=== PATIENT | male | born 1940 | race Caucasian/White ===

== ENCOUNTER 2017-11-08 09:50 | Emergency (ER) | END 2017-11-08 15:46 | disposition home or self-care (01) ==

== ENCOUNTER 2018-08-07 05:26 | Emergency (ER) | payer OTHER ==
[~2018-08-07] VITALS: Ht 172.7 cm; Wt 83.7 kg
[~2018-08-07 05:26] MED LIST: MELA3TAB17 PO; METO-336 PO; RANI150T35 PO; SIMV20TA PO; TERA1CAP3 PO
[2018-08-07 05:35] VITALS: Ht 172.7 cm; Wt 83.7 kg
[2018-08-07] MEDS ORDERED: SODIUM CHLORIDE 0.9% 1L BAG IV* STA (06:13)
[2018-08-07] MEDS ORDERED: LOSA1TAB28 PO (07:01)
[2018-08-07] MEDS ORDERED: OMEP20CA16 PO (07:01)
[2018-08-07] MEDS ORDERED: ONDANSETRON 4 MG INJ IV STA (07:10)
[2018-08-07] MEDS ORDERED: ONDA4TAB14 PO (07:47)
[2018-08-07 08:07] VITALS: BP 129/72; PULSE 78; RESP 16
--- NOTE | 2018-08-07 11:24 | ERD ---
ER Documentation Chief Complaint Chief Complaint DIZZINESS WITH HEADACHE AND N/V; DRY MOUTH; NO CHEST PAIN HPI Patient is a 78-year-old male with hypertension and chronic kidney disease who presents feeling sick. It started last night at 9 PM and he said "I started feeling sick". He has headache and chills. He did not check his temperature but thought may be he had a fever. He denies vomiting and diarrhea but does have nausea. He also has a dry mouth. Upon review of old medical records the patient one previous visit in October 2017. He does have a primary doctor. ROS All systems reviewed and are negative except as per history of present illness. Medications Home Meds Active Scripts Ondansetron (Ondansetron Odt) 4 Mg Tab.rapdis, 4 MG PO Q6H PRN for NAUSEA AND/OR VOMITING, #10 TAB Prov:COREY BABCOCK MD 08/07/18 Reported Medications Losartan-Hydrochlorothiazide (Losartan-HCTZ) 100-12.5 Mg Tab, 1 TAB PO DAILY, TAB 08/07/18 Omeprazole* (Omeprazole*) 20 Mg Capsule.dr, 20 MG PO AC BREAKFAST, #30 CAP 08/07/18 Melatonin (Melatonin) 3 Mg Tablet.sa, 3 MG PO HS, TAB.SA 11/08/17 Terazosin Hcl* (Terazosin Hcl*) 1 Mg Capsule, 1 MG PO HS, CAP 11/08/17 Simvastatin* (Zocor*) 20 Mg Tablet, 20 MG PO QHS, #30 TAB 11/08/17 Discontinued Reported Medications Ranitidine Hcl* (Zantac*) 150 Mg Tablet, 150 MG PO HS, #30 TAB 11/08/17 Metoprolol Succinate* (Toprol XL*) 100 Mg Tab.sr.24h, 100 MG PO DAILY, #30 TAB 11/08/17 Allergies Allergies: Coded Allergies: No Known Allergy (Unverified , 11/08/17) PMhx/Soc History of Surgery: Yes (Testicle) Anesthesia Reaction: No Hx Neurological Disorder: No Hx Respiratory Disorders: No Hx Cardiac Disorders: Yes (Hypertension, hyperlipidemia) Hx Psychiatric Problems: No Hx Miscellaneous Medical Probl: Yes (BPH) Hx Alcohol Use: No Hx Substance Use: No Hx Tobacco Use: No Smoking Status: Never smoker FmHx Family History: diabetes Physical Exam Vitals Vital Signs Date Temp Pulse Resp B/P (MAP) Pulse Ox O2 O2 Flow FiO2 Time Delivery Rate 08/07/18 98.1 78 16 129/72 99 Room Air 08:07 (91) 08/07/18 97.8 82 16 126/67 99 Room Air 07:23 (86) 08/07/18 98.6 102 15 148/85 99 Room Air 06:16 (106) 08/07/18 98.6 121 19 140/87 96 05:35 (104) Physical Exam Const: No acute distress Head: Atraumatic Eyes: Normal Conjunctiva ENT: Normal External Ears, Nose and Mouth. Neck: Full range of motion. No meningismus. Resp: Clear to auscultation bilaterally Cardio: Regular rate and rhythm, no murmurs Abd: Soft, non tender, non distended. Normal bowel sounds Skin: No petechiae or rashes Back: No midline or flank tenderness Ext: No cyanosis, or edema Neur: Awake and alert Psych: Normal Mood and Affect Result Diagram: 08/07/1862208/07/1823 Results 24 hrs Laboratory Tests Test 08/07/18 06:23 08/07/18 06:35 White Blood Count 16.2 10^3/ul Red Blood Count 4.79 10^6/ul Hemoglobin 14.4 g/dl Hematocrit 42.3 % Mean Corpuscular Volume 88.3 fl Mean Corpuscular Hemoglobin 30.1 pg Mean Corpuscular Hemoglobin Concent 34.0 g/dl Red Cell Distribution Width 12.6 % Platelet Count 147 10^3/UL Mean Platelet Volume 11.2 fl Immature Granulocytes % 0.700 % Neutrophils % 90.5 % Lymphocytes % 2.7 % Monocytes % 5.9 % Eosinophils % 0.0 % Basophils % 0.2 % Nucleated Red Blood Cells % 0.0 /100WBC Immature Granulocytes # 0.110 10^3/ul Neutrophils # 14.6 10^3/ul Lymphocytes # 0.4 10^3/ul Monocytes # 1.0 10^3/ul Eosinophils # 0.0 10^3/ul Basophils # 0.0 10^3/ul Nucleated Red Blood Cells # 0.0 10^3/ul Prothrombin Time 13.4 Sec Prothrombin Time Ratio 1.0 INR International Normalized Ratio 1.01 Activated Partial Thromboplast Time 29.5 Sec Urine Color YELLOW Urine Clarity CLEAR Urine pH 5.0 Urine Specific [place] 1.013 Urine Ketones TRACE mg/dL Urine Nitrite NEGATIVE mg/dL Urine Bilirubin NEGATIVE mg/dL Urine Urobilinogen NEGATIVE mg/dL Urine Leukocyte Esterase NEGATIVE Jona/ul Urine Microscopic RBC 0 /HPF Urine Microscopic WBC 0 /HPF Urine Bacteria FEW /HPF Urine Hemoglobin 1+ mg/dL Urine Glucose NEGATIVE mg/dL Urine Total Protein NEGATIVE mg/dl Sodium Level 136 mmol/L Potassium Level 3.6 mmol/L Chloride Level 100 mmol/L Carbon Dioxide Level 25 mmol/L Anion Gap 11 Blood Urea Nitrogen 22 mg/dl Creatinine 1.26 mg/dl Est Glomerular Filtrat Rate mL/min mL/min Glucose Level 151 mg/dl Calcium Level 9.0 mg/dl Total Bilirubin 1.1 mg/dl Direct Bilirubin 0.00 mg/dl Indirect Bilirubin 1.1 mg/dl Aspartate Amino Transf (AST/SGOT) 24 IU/L Alanine Aminotransferase (ALT/SGPT) 25 IU/L Alkaline Phosphatase 50 IU/L Troponin I < 0.012 ng/ml Total Protein 7.0 g/dl Albumin 4.1 g/dl Globulin 2.90 g/dl Albumin/Globulin Ratio 1.41 POC Venous Lactate 1.4 mmol/L Current Medications Medications Dose Sig/Rosette Start Time Status Last (Trade) Ordered Route PRN Stop Time Admin Dose Reason Admin Sodium 2,510 ml BOLUS OVER 2 08/07/18 DC 08/07/18 Chloride HOURS STAT 06:13 06:41 (NS) IV* 08/07/18 06:14 Ondansetron 4 mg ONCE STAT 08/07/18 DC 08/07/18 HCl (Zofran IV 07:10 07:22 Inj) 08/07/18 07:11 Procedures/MDM EKG read by me: Rate/Rhythm: Sinus tachycardia at a rate of 103 Intervals: Normal Impression: Tachycardia without ischemia Chest x-ray negative per radiology. Patient is a 78-year-old male who presents with chills and nausea. He was basically normal on physical exam. He has no sign of serious bacterial infection at this time. I doubt sepsis. I doubt acute coronary syndrome or s troke. I believe outpatient management is appropriate at this time but the patient will need close follow-up with his primary doctor. The patient can return for any worsening symptoms. Departure Diagnosis: Primary Impression: Urinary frequency Additional Impressions: Dizziness Nausea Condition: Fair Patient Instructions: Nausea, Dizziness, Unk Cause Referrals: Your doctor Additional Instructions: Call your primary care doctor TOMORROW for an appointment during the next 1-2 days.See the doctor sooner or return here if your condition worsens before your appointment time. COREY BABCOCK MD Aug 07, 2018 11:24
== END 2018-08-07 08:08 | disposition home or self-care (01) ==
LOC: E/R 05:26
DX: R35.0 Frequency of micturition (principal); R11.0 Nausea; R40.2142 Coma scale, eyes open, spontaneous, at arrival to emergency department; R40.2252 Coma scale, best verbal response, oriented, at arrival to emergency department; R40.2362 Coma scale, best motor response, obeys commands, at arrival to emergency department; I10 Essential (primary) hypertension
CPT/HCPCS: 36415; 71045; 80053; 81001; 83605; 84484; 85025; 85610; 85730; 87040; 87086; 93005; 96361; 96374; 99285; J2405; J7030

== ENCOUNTER 2019-02-26 19:25 | Inpatient (IN) | payer OTHER ==
[~2019-02-26] VITALS: Ht 170.2 cm; Wt 83.7 kg
[~2019-02-26 19:25] MED LIST changes: +AMOX1TAB10 PO; +CARV6.25 PO; +LOSA1TAB28 PO; -METO-336 PO; +OMEP20CA16 PO; +ONDA4TAB14 PO; +QUET25TA33 PO; -RANI150T35 PO; +SACC250C9 PO
[2019-02-26] MEDS ORDERED: ONDANSETRON 4 MG INJ IV STA (20:04)
[2019-02-26] MEDS ORDERED: LIDOCAINE/MYLANTA 40 ML BTL PO STA (20:04)
[2019-02-26] MEDS ORDERED: SOD CHLORIDE 0.9% 1,000 ML IV STA (20:04)
[2019-02-26] MEDS ORDERED: KETOROLAC 15 MG INJ IV STA (20:04)
[2019-02-26] MEDS ORDERED: BELLADONNA/PHENOBARBITAL TAB PO STA (20:04)
--- NOTE | 2019-02-26 20:09 | ERD ---
ER Documentation Chief Complaint Chief Complaint RUQ AP x2 hours w/ nausea. no vomiting/diarrhea HPI This is a 78-year-old man complaining of nausea and right upper quadrant abdominal pain beginning a few hours ago, pain was constant nonradiating nonexertional, he denies prior episodes. Patient denies vomiting or diarrhea, no blood per rectum or melena, no recent weight loss, no complaints of chest pain or shortness of breath, no fevers or chills ROS All systems reviewed and are negative except as per history of present illness. Medications Home Meds Active Scripts Ondansetron (Ondansetron Odt) 4 Mg Tab.rapdis, 4 MG PO Q6H PRN for NAUSEA AND/OR VOMITING, #10 TAB Prov:COREY BABCOCK MD 08/07/18 Reported Medications Losartan-Hydrochlorothiazide (Losartan-HCTZ) 100-12.5 Mg Tab, 1 TAB PO DAILY, TAB 08/07/18 Omeprazole* (Omeprazole*) 20 Mg Capsule.dr, 20 MG PO AC BREAKFAST, #30 CAP 08/07/18 Melatonin (Melatonin) 3 Mg Tablet.sa, 3 MG PO HS, TAB.SA 11/08/17 Terazosin Hcl* (Terazosin Hcl*) 1 Mg Capsule, 1 MG PO HS, CAP 11/08/17 Simvastatin* (Zocor*) 20 Mg Tablet, 20 MG PO QHS, #30 TAB 11/08/17 Allergies Allergies: Coded Allergies: No Known Allergy (Unverified , 11/08/17) PMhx/Soc Hypertension History of Surgery: Yes (Testicle) Anesthesia Reaction: No Hx Neurological Disorder: No Hx Respiratory Disorders: No Hx Cardiac Disorders: Yes (Hypertension, hyperlipidemia) Hx Psychiatric Problems: No Hx Miscellaneous Medical Probl: Yes (BPH, DM, CKD Stage 3) Hx Alcohol Use: No Hx Substance Use: No Hx Tobacco Use: No FmHx Family History: No diabetes Physical Exam Vitals Vital Signs Date Temp Pulse Resp B/P (MAP) Pulse Ox O2 O2 Flow FiO2 Time Delivery Rate 02/26/19 98.0 54 17 175/82 97 Room Air 21:17 (113) 02/26/19 75 16 208/96 98 Room Air 20:01 (133) 02/26/19 98.3 69 16 215/99 97 19:27 (137) Physical Exam GENERAL: Well-developed, well-nourished, well-hydrated, in no apparent distress, looks nontoxic in appearance HEENT: Moist mucous membranes, pink conjunctiva, no cervical spine tenderness or step-off deformities, no goiter, no jaundice or icterus, extraocular movements intact without pain. No submandibular induration, and no pharyngeal erythema NEURO: Alert and oriented 3, cranial nerves II through XII intact bilaterally, pupils equal round reactive to light, no focal deficits or facial asymmetry, sensation intact distally Strength 5/5 in upper and lower extremities bilaterally CARDIAC: Regular rate and rhythm, no murmurs rubs or gallops LUNGS: Clear bilaterally no wheezing crackles or stridor ABDOMEN: Soft nontender, no guarding, no rigidity, no rebound, no psoas sign no obturator sign. Normoactive bowel sounds SKIN: Warm and dry to touch, no abrasions, contusions, or hematomas, no lacerations, no ecchymosis, no target lesions, and without ulcers EXTREMITIES: No clubbing cyanosis or edema, calves are bilaterally symmetrical, no Homans sign, no popliteal cord sign. Distal pulses equal and bilateral PSYCH: Normal affect without agitation or irritability Result Diagram: 02/26/19200702/26/192007 Results 24 hrs Laboratory Tests Test 02/26/19 20:08 White Blood Count 5.1 10^3/ul Red Blood Count 4.82 10^6/ul Hemoglobin 14.5 g/dl Hematocrit 43.9 % Mean Corpuscular Volume 91.1 fl Mean Corpuscular Hemoglobin 30.1 pg Mean Corpuscular Hemoglobin Concent 33.0 g/dl Red Cell Distribution Width 13.0 % Platelet Count 157 10^3/UL Mean Platelet Volume 11.1 fl Immature Granulocytes % 0.200 % Neutrophils % 48.9 % Lymphocytes % 36.9 % Monocytes % 11.8 % Eosinophils % 1.4 % Basophils % 0.8 % Nucleated Red Blood Cells % 0.0 /100WBC Immature Granulocytes # 0.010 10^3/ul Neutrophils # 2.5 10^3/ul Lymphocytes # 1.9 10^3/ul Monocytes # 0.6 10^3/ul Eosinophils # 0.1 10^3/ul Basophils # 0.0 10^3/ul Nucleated Red Blood Cells # 0.0 10^3/ul Prothrombin Time 13.2 Sec Prothrombin Time Ratio 1.0 INR International Normalized Ratio 0.99 Activated Partial Thromboplast Time 30.5 Sec Sodium Level 138 mmol/L Potassium Level 3.8 mmol/L Chloride Level 105 mmol/L Carbon Dioxide Level 25 mmol/L Anion Gap 8 Blood Urea Nitrogen 23 mg/dl Creatinine 1.26 mg/dl Est Glomerular Filtrat Rate mL/min mL/min Glucose Level 154 mg/dl Calcium Level 9.0 mg/dl Total Bilirubin 0.6 mg/dl Direct Bilirubin 0.00 mg/dl Indirect Bilirubin 0.6 mg/dl Aspartate Amino Transf (AST/SGOT) 22 IU/L Alanine Aminotransferase (ALT/SGPT) 23 IU/L Alkaline Phosphatase 49 IU/L Troponin I < 0.012 ng/ml Total Protein 7.2 g/dl Albumin 3.9 g/dl Globulin 3.30 g/dl Albumin/Globulin Ratio 1.18 Lipase 309 U/L Current Medications Medications Dose Sig/Rosette Start Time Status Last (Trade) Ordered Route PRN Stop Time Admin Dose Reason Admin Sodium 1,000 ml @ Q1H STAT 02/26/19 DC 02/26/19 Chloride 1,000 mls/hr IV 20:04 20:12 02/26/19 21:03 Ondansetron 4 mg ONCE STAT 02/26/19 DC 02/26/19 HCl (Zofran IV 20:04 20:12 Inj) 02/26/19 20:05 40 ml ONCE STAT 02/26/19 DC 02/26/19 Miscellaneous PO 20:04 20:12 Medication 02/26/19 20:05 (Gi Cocktail (2)) Belladonna/ 2 tab ONCE STAT 02/26/19 DC 02/26/19 Phenobarbital PO 20:04 20:12 () 02/26/19 20:05 Ketorolac 15 mg ONCE STAT 02/26/19 DC 02/26/19 Tromethamine IV 20:04 20:12 (Toradol) 02/26/19 20:05 Piperacillin 100 ml @ ONCE ONCE 02/26/19 02/26/19 Sod/ 200 mls/hr IVPB 21:30 21:22 Tazobactam 02/26/19 21:59 Sod Procedures/MDM IV line was established patient was placed on youth nutritional monitor rhythm strip revealed a sinus rhythm at about 80 bpm with upright P and T waves. Patient was afebrile EKG performed, read by me reveals a normal sinus rhythm at 69 bpm, normal axis, right ventricular conduction delay QRS duration 108 ms, no concerning ST elevations or depressions noted I administered 1 L normal saline IV, Toradol IV, Zofran 4 mg IV, and GI cocktail p.o. CBC and electrolytes are normal, liver function tests were unremarkable, troponin was negative Gallbladder ultrasound was performed revealing multiple gallstones and thickened gallbladder wall consistent with cholecystitis. I administered Zosyn 3.375 g IV and spoke to patient's [employer] insurance directed physician who agreed to admission and will take over care and contact surgical consultants. Patient admitted to [facility]. Departure Diagnosis: Primary Impression: Nausea Additional Impression: Acute cholecystitis Condition: KARELY Tinoco MD Feb 26, 2019 20:09
[2019-02-26] MEDS ORDERED: PIPER-TAZO 3.375 GM IV (PMX) 100 ML IVPB ONE (21:30)
[2019-02-26] MEDS ORDERED: HYDROmorphONE 2 MG/ML SYG IV STA (22:12)
[2019-02-26] MEDS ORDERED: ONDANSETRON (ODT) 4 MG TAB ODT PRN (22:30)
[2019-02-26] MEDS ORDERED: ACETAMINOPHEN 325 MG TAB PO PRN (22:30)
[2019-02-26] MEDS ORDERED: DOCUSATE SODIUM 100 MG CAP PO PRN (22:30)
[2019-02-26] MEDS ORDERED: NACL 0.9% 3 ML SYG IV SCH (22:30)
[2019-02-26 23:23] VITALS: BP 198/91; PULSE 72; RESP 19
[2019-02-26 23:41] VITALS: Ht 170.2 cm; Wt 83.7 kg
[2019-02-27] MEDS: FAMOTIDINE 20 MG INJ IV SCH ×2 (01:08→22:50)
[2019-02-27] MEDS: D5-NS + KCL 20 MEQ 1,000 ML IV SCH ×2 (01:08→11:50)
[2019-02-27] MEDS: hydrALAzine 20 MG INJ IV PRN ×2 (01:14→08:48)
[2019-02-27 02:00] VITALS: BP 162/72; PULSE 65; RESP 18
[2019-02-27 08:00] VITALS: BP_SYST 142; BP_SYST 177; BP_DIAS 67; BP_DIAS 79; PULSE 76; PULSE 84; RESP 18
[2019-02-27] MEDS: ENOXAPARIN 30 MG/0.3 ML SYG SC SCH (08:47)
[2019-02-27] MEDS ORDERED: NON-FORMULARY/PATIENT OWN MED (Losartan-Hydrochlorothiazide (Losartan-HCTZ) 1 TAB) PO SCH (09:00)
--- NOTE | 2019-02-27 11:18 | CONS ---
Assessment/Plan Assessment/Plan Hospital Course (Demo Recall) 1. Abdominal pain with ultrasound finding of cholelithiasis, concern for cholecystitis: -HIDA scan -Antibiotics -Pain management -N.p.o. for now 2. Minimally elevated amylase lipase: -trend 3. Hypertension & Hyperlipidemia history: -Medical management -Highly encourage weight loss 4. Gout -Lifestyle optimization 5. BPH: Currently on terazosin: -Continue medical management Thank you. Patient seen and examined in collaboration with Dr. Og Stoddard. Consultation Date/Type/Reason Admit Date/Time Feb 26, 2019 at 21:43 Date of Consultation: Feb 27, 2019 Type of Consult surgical Reason for Consultation abdominal pain, possible cholecystitis Requesting Provider: SUDHIR REYES MD Date/Time of Note DATE: 02/27/19 TIME: 11:00 Hx of Present Illness Dimitri Barnard is a 78 yo man who presented with complaints of abdominal pain pred ominantly on the right upper quadrant with radiation to the back, right lower abdomen and right upper thigh. Pain began yesterday and is described as strong and persistent. No noted prandial associations. Associated symptoms include chills and nausea. No fevers, labored breathing, congested cough, vomiting, diarrhea, sz, rash, change in skin coloration. While in ER, he received a GI cocktail as well as Toradol. At present, he reports abdominal pain is much improved and has not received any additional pain medications. Ultrasound of the gallbladder shows multiple gallstones versus polyps within the gallbladder With thickened gallbladder wall. laboratory findings significant for mildly el evated amylase and lipase. General surgery was asked to evaluate. 12 point review of systems was performed and is negative except for as stated in HPI. Past Medical History Hypertension Hyperlipidemia Gout BPH Home Meds Active Scripts Ondansetron (Ondansetron Odt) 4 Mg Tab.rapdis, 4 MG PO Q6H PRN for NAUSEA AND/OR VOMITING, #10 TAB Prov:COREY BABCOCK MD 08/07/18 Reported Medications Losartan-Hydrochlorothiazide (Losartan-HCTZ) 100-12.5 Mg Tab, 1 TAB PO DAILY, TAB 08/07/18 Omeprazole* (Omeprazole*) 20 Mg Capsule.dr, 20 MG PO AC BREAKFAST, #30 CAP 08/07/18 Melatonin (Melatonin) 3 Mg Tablet.sa, 3 MG PO HS, TAB.SA 11/08/17 Terazosin Hcl* (Terazosin Hcl*) 1 Mg Capsule, 1 MG PO HS, CAP 11/08/17 Simvastatin* (Zocor*) 20 Mg Tablet, 20 MG PO QHS, #30 TAB 11/08/17 Medications Current Medications Ondansetron HCl (Zofran Odt) 4 mg Q6H PRN ODT NAUSEA AND/OR VOMITING; Start 02/26/19 at 22:30 Terazosin HCl (Hytrin) 1 mg HS PO ; Start 02/27/19 at 21:00 IV Flush (NS 3 ml) 3 ml PER PROTOCOL IV ; Start 02/26/19 at 22:30 Acetaminophen (Tylenol Tab) 650 mg Q6H PRN PO .PAIN 1-3 OR TEMP; Start 02/26/19 at 22:30 Morphine Sulfate (morphine) 2 mg Q4H PRN IV .SEVERE PAIN 7-10; Start 02/26/19 at 22:30 Docusate Sodium (Colace) 100 mg Q12H PRN PO .CONSTIPATION; Start 02/26/19 at 22:30 Famotidine (Pepcid Iv) 20 mg Q24H IV Last administered on 02/27/19at 01:08; Admin Dose 20 MG; Start 02/26/19 at 22:30 Enoxaparin Sodium (Lovenox) 30 mg DAILY SC Last administered on 02/27/19at 08:47; Admin Dose 30 MG; Start 02/27/19 at 09:00 Potassium Chloride/Dextrose/ Sod Cl 1,000 ml @ 75 mls/hr [id number] IV Last administered on 02/27/19at 01:08; Admin Dose 75 MLS/HR; Start 02/26/19 at 22:30 Melatonin (Melatonin) 3 mg HS PO ; Start 02/27/19 at 21:00 Hydralazine HCl (Apresoline) 10 mg Q4H PRN IV ELEVATED SYSTOLIC BP Last administered on 02/27/19at 08:48; Admin Dose 10 MG; Start 02/27/19 at 00:30 Allergies: Coded Allergies: No Known Allergy (Unverified , 02/26/19) Past Surgical History Open appendectomy Family History Significant Family History: no pertinent family hx Social History Alcohol Use: occasionally Smoking Status: Former smoker Drug Use: none Exam/Review of Systems Exam Vitals Vital Signs Date Temp Pulse Resp B/P (MAP) Pulse Ox O2 O2 Flow FiO2 Time Delivery Rate 02/27/19 98.6 76 18 177/79 96 08:00 (111) 02/26/19 Room Air 23:10 Intake and Output 02/26/19 02/26/19 02/27/19 1515:00 23:00 07:00 IntakeIntake Total 1100 ml 25 ml BalanceBalance 1100 ml 25 ml Constitutional: alert, oriented (Forgetful) Psych: nl mood/affect; No anxiety Head: normocephalic, atraumatic Eyes: nl conjunctiva, EOMI, nl lids, nl sclera ENMT: nl external ears & nose, nl lips & teeth Neck: supple, non-tender Respiratory: normal air movement; No congested cough Cardiovascular: regular rate and rhythm, nl pulses; No edema Gastrointestinal: soft, non-tender (Negative Hoffman's by palpation) Genitourinary - Male: nl penis, nl scrotum Musculoskeletal: nl extremities to inspection, nl gait and stance Extremities: normal pulses Neurological: nl mental status, nl speech, nl strength Skin: nl turgor; No rash or lesions Lymph: nl lymph nodes Results Result Diagram: 02/27/19 0650 02/27/19 0650 Results 24hrs Laboratory Tests Test 02/26/19 20:08 02/27/19 06:45 02/27/19 06:50 White Blood Count 5.1 # 8.1 # Red Blood Count 4.82 5.00 Hemoglobin 14.5 14.8 Hematocrit 43.9 46.1 Mean Corpuscular Volume 91.1 92.2 Mean Corpuscular Hemoglobin 30.1 29.6 Mean Corpuscular Hemoglobin Concent 33.0 32.1 Red Cell Distribution Width 13.0 13.4 Platelet Count 157 144 Mean Platelet Volume 11.1 H 11.6 H Immature Granulocytes % 0.200 0.200 Neutrophils % 48.9 79.3 H Lymphocytes % 36.9 13.9 L Monocytes % 11.8 H 6.0 Eosinophils % 1.4 0.1 Basophils % 0.8 0.5 Nucleated Red Blood Cells % 0.0 0.0 Immature Granulocytes # 0.010 0.020 Neutrophils # 2.5 6.4 Lymphocytes # 1.9 1.1 Monocytes # 0.6 0.5 Eosinophils # 0.1 0.0 Basophils # 0.0 0.0 Nucleated Red Blood Cells # 0.0 0.0 Prothrombin Time 13.2 Prothrombin Time Ratio 1.0 INR International Normalized Ratio 0.99 Activated Partial Thromboplast Time 30.5 Sodium Level 138 140 Potassium Level 3.8 4.3 Chloride Level 105 108 Carbon Dioxide Level 25 23 Anion Gap 8 9 Blood Urea Nitrogen 23 H 17 Creatinine 1.26 H 1.12 Est Glomerular Filtrat Rate mL/min Glucose Level 154 123 Calcium Level 9.0 9.0 Total Bilirubin 0.6 0.8 Direct Bilirubin 0.00 0.00 Indirect Bilirubin 0.6 0.8 Aspartate Amino Transf (AST/SGOT) 22 25 Alanine Aminotransferase (ALT/SGPT) 23 23 Alkaline Phosphatase 49 52 Troponin I < 0.012 < 0.012 Total Protein 7.2 7.4 Albumin 3.9 4.1 Globulin 3.30 H 3.30 H Albumin/Globulin Ratio 1.18 1.24 Lipase 309 H 173 Hemoglobin A1c 5.7 Amylase Level 139 H Free Thyroxine Index 3.09 Thyroxine (T4) 8.1 Triiodothyronine (T3) Uptake 38.1 Medications Medication Current Medications Ondansetron HCl (Zofran Odt) 4 mg Q6H PRN ODT NAUSEA AND/OR VOMITING; Start 02/26/19 at 22:30 Terazosin HCl (Hytrin) 1 mg HS PO ; Start 02/27/19 at 21:00 IV Flush (NS 3 ml) 3 ml PER PROTOCOL IV ; Start 02/26/19 at 22:30 Acetaminophen (Tylenol Tab) 650 mg Q6H PRN PO .PAIN 1-3 OR TEMP; Start 02/26/19 at 22:30 Morphine Sulfate (morphine) 2 mg Q4H PRN IV .SEVERE PAIN 7-10; Start 02/26/19 at 22:30 Docusate Sodium (Colace) 100 mg Q12H PRN PO .CONSTIPATION; Start 02/26/19 at 22:30 Famotidine (Pepcid Iv) 20 mg Q24H IV Last administered on 02/27/19at 01:08; Admin Dose 20 MG; Start 02/26/19 at 22:30 Enoxaparin Sodium (Lovenox) 30 mg DAILY SC Last administered on 02/27/19at 08:47; Admin Dose 30 MG; Start 02/27/19 at 09:00 Potassium Chloride/Dextrose/ Sod Cl 1,000 ml @ 75 mls/hr [id number] IV Last administered on 02/27/19at 01:08; Admin Dose 75 MLS/HR; Start 02/26/19 at 22:30 Melatonin (Melatonin) 3 mg HS PO ; Start 02/27/19 at 21:00 Hydralazine HCl (Apresoline) 10 mg Q4H PRN IV ELEVATED SYSTOLIC BP Last administered on 02/27/19at 08:48; Admin Dose 10 MG; Start 02/27/19 at 00:30 BRIDGETTE HALLMAN NP Feb 27, 2019 11:10
[2019-02-27] MEDS: PIPER-TAZO 3.375 GM IV (PMX) 100 ML IVPB SCH ×3 (12:20→23:57)
[2019-02-27] MEDS: morphine 2 MG INJ IV PRN (12:54)
[2019-02-27] MEDS: QUETIAPINE 25 MG TAB NGT SCH ×2 (15:29→20:40)
[2019-02-27 15:30] VITALS: BP 162/90; PULSE 100; RESP 20
[2019-02-27] MEDS ORDERED: HALOPERIDOL 5 MG INJ IM ONE (18:00)
[2019-02-27 18:21] VITALS: BP 170/84; PULSE 100
[2019-02-27] MEDS ORDERED: LOSARTAN 50 MG TAB PO ONE (18:30)
--- NOTE | 2019-02-27 18:30 | HP ---
Date/Time of Note Date/Time of Note DATE: 02/27/19 TIME: 18:11 Assessment/Plan VTE Prophylaxis Risk score (from Ns)>0 risk: 4 [place] [facility] [place]CD contraindicated: patient refusal Pharmacological prophylaxis: heparin Lines/Catheters IV C[facility]ter Type (from [facility]): Peripheral IV Assessment/Plan Hospital Course 78 years old male with history of HTN HLD, BPH s/p appendectomy who presented with one day of RUQ abdominal pain and right shoulder pain . He was quite encephalopathic and confused at the time of my visit noted that his speech is slurred and he is not making any sense. He pulled the IV in front of me and started walking around the unit pouring his blood all over the floor. # RUQ abdominal pain # Gallbladder wall thickening HIDA scan was negative - IV Zosyn - Advance the diet as tolerated # Encephalopathy , agitated delirium explains hx of episodic paranoia while on a cruise CT with no acute abnormalities - UA and UC - Seroquel 25 BID - One to one sitter - Outpatient neurocognitive test - MRI brain if patient tolerates #HTN - Losartan #BPH - Terazosin #PPI for GI PPX , SCD for DVT PPX Result Diagram: 02/27/19 0650 02/27/19 0650 Results 24hrs Laboratory Tests Test 02/26/19 20:08 02/27/19 06:45 02/27/19 06:50 White Blood Count 5.1 # 8.1 # Red Blood Count 4.82 5.00 Hemoglobin 14.5 14.8 Hematocrit 43.9 46.1 Mean Corpuscular Volume 91.1 92.2 Mean Corpuscular Hemoglobin 30.1 29.6 Mean Corpuscular Hemoglobin Concent 33.0 32.1 Red Cell Distribution Width 13.0 13.4 Platelet Count 157 144 Mean Platelet Volume 11.1 H 11.6 H Immature Granulocytes % 0.200 0.200 Neutrophils % 48.9 79.3 H Lymphocytes % 36.9 13.9 L Monocytes % 11.8 H 6.0 Eosinophils % 1.4 0.1 Basophils % 0.8 0.5 Nucleated Red Blood Cells % 0.0 0.0 Immature Granulocytes # 0.010 0.020 Neutrophils # 2.5 6.4 Lymphocytes # 1.9 1.1 Monocytes # 0.6 0.5 Eosinophils # 0.1 0.0 Basophils # 0.0 0.0 Nucleated Red Blood Cells # 0.0 0.0 Prothrombin Time 13.2 Prothrombin Time Ratio 1.0 INR International Normalized Ratio 0.99 Activated Partial Thromboplast Time 30.5 Sodium Level 138 140 Potassium Level 3.8 4.3 Chloride Level 105 108 Carbon Dioxide Level 25 23 Anion Gap 8 9 Blood Urea Nitrogen 23 H 17 Creatinine 1.26 H 1.12 Est Glomerular Filtrat Rate mL/min Glucose Level 154 123 Calcium Level 9.0 9.0 Total Bilirubin 0.6 0.8 Direct Bilirubin 0.00 0.00 Indirect Bilirubin 0.6 0.8 Aspartate Amino Transf (AST/SGOT) 22 25 Alanine Aminotransferase (ALT/SGPT) 23 23 Alkaline Phosphatase 49 52 Troponin I < 0.012 < 0.012 Total Protein 7.2 7.4 Albumin 3.9 4.1 Globulin 3.30 H 3.30 H Albumin/Globulin Ratio 1.18 1.24 Lipase 309 H 173 Hemoglobin A1c 5.7 Amylase Level 139 H Free Thyroxine Index 3.09 Thyroxine (T4) 8.1 Triiodothyronine (T3) Uptake 38.1 HPI/ROS Admit Date/Time Admit Date/Time Feb 26, 2019 at 21:43 Hx of Present Illness 78 years old male with history of HTN HLD, BPH s/p appendectomy who presented with one day of RUQ abdominal pain and right shoulder pain . He was quite encephalopathic and confused at the time of my visit and the hx was solely based on my conversation with his . His last BM was yesterday . He was n auseated . Did not vomit . Today he was noted to be altered . noted that his speech is slurred and he is not making any sense. He pulled the IV in front of me and started walking around the unit pouring his blood all over the floor. I was able to direct him to his room and was able to convince him to lay on the bed . He needed frequent reorientation . ED work up : US abdomen showed thickened gallbladder wall . PMH/Family/Social Past Medical History Medications Current Medications Ondansetron HCl (Zofran Odt) 4 mg Q6H PRN ODT NAUSEA AND/OR VOMITING; Start 02/26/19 at 22:30 Terazosin HCl (Hytrin) 1 mg HS PO ; Start 02/27/19 at 21:00 IV Flush (NS 3 ml) 3 ml PER PROTOCOL IV ; Start 02/26/19 at 22:30 Acetaminophen (Tylenol Tab) 650 mg Q6H PRN PO .PAIN 1-3 OR TEMP; Start 02/26/19 at 22:30 Morphine Sulfate (morphine) 2 mg Q4H PRN IV .SEVERE PAIN 7-10 Last administered on 02/27/19at 12:54; Admin Dose 2 MG; Start 02/26/19 at 22:30 Docusate Sodium (Colace) 100 mg Q12H PRN PO .CONSTIPATION; Start 02/26/19 at 22:30 Famotidine (Pepcid Iv) 20 mg Q24H IV Last administered on 02/27/19at 01:08; Admin Dose 20 MG; Start 02/26/19 at 22:30 Enoxaparin Sodium (Lovenox) 30 mg DAILY SC Last administered on 02/27/19at 08:47; Admin Dose 30 MG; Start 02/27/19 at 09:00 Potassium Chloride/Dextrose/ Sod Cl 1,000 ml @ 75 mls/hr [id number] IV Last administered on 02/27/19at 01:08; Admin Dose 75 MLS/HR; Start 02/26/19 at 22:30 Melatonin (Melatonin) 3 mg HS PO ; Start 02/27/19 at 21:00 Hydralazine HCl (Apresoline) 10 mg Q4H PRN IV ELEVATED SYSTOLIC BP Last administered on 02/27/19at 08:48; Admin Dose 10 MG; Start 02/27/19 at 00:30 Piperacillin Sod/ Tazobactam Sod 100 ml @ 200 mls/hr Q6 IVPB Last administered on 02/27/19at 12:20; Admin Dose 200 MLS/HR; Start 02/27/19 at 12:00 Hydralazine HCl (Apresoline) 10 mg Q4H PRN PO SBP> 150 or DBP > 95; Start 02/27/19 at 13:30 Quetiapine Fumarate (Seroquel) 25 mg BID NGT Last administered on 02/27/19at 15:29; Admin Dose 25 MG; Start 02/27/19 at 13:30 Amlodipine Besylate (Norvasc) 2.5 mg DAILY PO ; Start 02/28/19 at 09:00 Coded Allergies: No Known Allergy (Unverified , 02/26/19) Family History Significant Family History: no pertinent family hx Social History Alcohol Use: occasionally Smoking Status: Former smoker Drug Use: none Exam/Review of Systems Vital Signs Vitals Vital Signs Date Temp Pulse Resp B/P (MAP) Pulse Ox O2 O2 Flow FiO2 Time Delivery Rate 02/27/19 98.6 100 20 162/90 96 15:30 (114) 02/26/19 Room Air 23:10 Intake and Output 02/26/19 02/26/19 02/27/19 1515:00 23:00 07:00 IntakeIntake Total 1100 ml 25 ml BalanceBalance 1100 ml 25 ml Exam Constitutional: alert, well developed, distress; No oriented Psych: confusion Head: normocephalic, atraumatic Eyes: nl conjunctiva, EOMI, nl lids, nl sclera, PERRL ENMT: nl external ears & nose, nl lips & teeth, nl nasal mucosa & septum Neck: supple, non-tender Respiratory: clear to auscultation, normal air movement Cardiovascular: regular rate and rhythm, nl pulses Gastrointestinal: soft, non-tender Musculoskeletal: nl extremities to inspection Extremities: normal pulses Neurological: BROKER IN CHARGE II-XII intact, nl mental status, nl speech, nl strength SUDHIR REYES MD Feb 27, 2019 18:21
[2019-02-27] MEDS ORDERED: TERAZOSIN 1 MG CAP ONE (19:48)
[2019-02-27] MEDS ORDERED: FAMOTIDINE 20 MG TAB ONE (19:48)
[2019-02-27] MEDS ORDERED: MELATONIN 3 MG TABLET ONE (19:48)
[2019-02-27 20:00] VITALS: BP 156/81; PULSE 74; RESP 17
[2019-02-27] MEDS: TERAZOSIN 1 MG CAP PO SCH (20:41)
[2019-02-27] MEDS: MELATONIN 3 MG TABLET PO SCH (20:43)
[2019-02-27] MEDS ORDERED: NON-FORMULARY/PATIENT OWN MED (Melatonin 3 MG) PO SCH (21:00)
[2019-02-27] MEDS: FLUTICASONE 0.05% 16 GM NAS SPRAY NASAL SCH (22:50)
[2019-02-28] MEDS: D5-NS + KCL 20 MEQ 1,000 ML IV SCH ×2 (01:10→05:30)
[2019-02-28 02:46] VITALS: BP 142/78; PULSE 81; RESP 17
[2019-02-28] MEDS: PIPER-TAZO 3.375 GM IV (PMX) 100 ML IVPB SCH ×3 (05:32→18:06)
[2019-02-28 08:00] VITALS: BP 191/89; PULSE 76; RESP 20
[2019-02-28] MEDS: AMLODIPINE 2.5 MG TAB PO SCH (08:35)
[2019-02-28] MEDS: FLUTICASONE 0.05% 16 GM NAS SPRAY NASAL SCH ×2 (08:35→20:26)
[2019-02-28] MEDS: QUETIAPINE 25 MG TAB NGT SCH ×2 (08:35→20:25)
[2019-02-28] MEDS: LOSARTAN 50 MG TAB PO SCH (08:35)
[2019-02-28] MEDS: ENOXAPARIN 30 MG/0.3 ML SYG SC SCH (08:37)
[2019-02-28 09:14] VITALS: BP 179/84
[2019-02-28] MEDS ORDERED: SODIUM CHLORIDE 0.9% 1L BAG IV* STA (09:32)
--- NOTE | 2019-02-28 10:00 | PN ---
Date/Time of Note Date/Time of Note DATE: 02/28/19 TIME: 09:49 Assessment/Plan Lines/Catheters IV Catheter Type (from [facility]): Peripheral IV Assessment/Plan Chief Complaint/Hosp Course 1. Abdominal pain with ultrasound finding of cholelithiasis, concern for cholecystitis: HIDA unremarkable; abdominal pain resolved -discussed surgical option with and patient, at this time they would like to hold off on surgical intervention. -Pain management prn -low fat low cholesterol diet 2. Mild hyperbilirubinemia: -trend 3. Hypertension & Hyperlipidemia: -Medical management -Highly encourage weight loss 4. Minimally elevated amylase lipase: -trend 5. BPH: Currently on terazosin: -Continue medical management 6. Gout -Lifestyle optimization Thank you. Patient seen and examined in collaboration with Dr. Og Stoddard. Subjective 24 Hr Interval Summary No abdominal discomfort at this time. Hypertensive. Confused and agitated overnight. No fevers, chills, sob, congested cough, cp, palpitations, monteiro, dizziness, n/v/d/dysuria. Exam/Review of Systems Vital Signs Vitals Vital Signs Date Temp Pulse Resp B/P (MAP) Pulse Ox O2 O2 Flow FiO2 Time Delivery Rate 02/28/19 179/84 09:14 (115) 02/28/19 98.3 76 20 95 Room Air 08:00 Intake and Output 02/27/19 02/27/19 02/28/19 1515:00 23:00 07:00 IntakeIntake Total 100 ml 340 ml 1490 ml BalanceBalance 100 ml 340 ml 1490 ml Exam Free Text/Dictation Constitutional: alert, oriented (x1) Psych: nl mood/affect; No anxiety Head: normocephalic, atraumatic Eyes: nl conjunctiva, EOMI, nl lids, nl sclera ENMT: nl external ears & nose, nl lips & teeth Neck: supple, non-tender Respiratory: normal air movement; No congested cough Cardiovascular: regular rate and rhythm, nl pulses; No edema Gastrointestinal: soft, non-tender (Negative Hoffman's by palpation) Genitourinary - Male: nl penis, nl scrotum Musculoskeletal: nl extremities to inspection, nl gait and stance Extremities: normal pulses Neurological: nl mental status, nl speech, nl strength Skin: nl turgor; No rash or lesions Lymph: nl lymph nodes Results Result Diagram: 02/28/19 0438 02/28/19 0438 BRIDGETTE HALLMAN NP Feb 28, 2019 10:00
[2019-02-28 13:47] VITALS: BP 154/78; PULSE 67; RESP 20
--- NOTE | 2019-02-28 17:28 | PDOCDIS ---
Discharge Instructions CONDITION [id number] Patient Condition: [id number] Stable HOME CARE INSTRUCTIONS: [id number] Diet Instructions: Sandra [id number] Special Diet: [id number] POINTMENTS Follow-up Plan PCP in 7 days Neurology in 7 days for neurocognitive test General surgery Dr Stoddard in 2 weeks for gallstones REFERRALS [id number] Referring Provider: CARMENCITA Cox MD, ALI MD Feb 28, 2019 17:28
--- NOTE | 2019-02-28 17:29 | DS ---
Date/Time of Note Date/Time of Note DATE: 02/28/19 TIME: 17:29 Discharge Summary Admission/Discharge Info Admit Date/Time Feb 26, 2019 at 21:43 Discharge Date/Time Patient Condition: Fair Hx of Present Illness 78 years old male with history of HTN HLD, BPH s/p appendectomy who presented with one day of RUQ abdominal pain and right shoulder pain . He was quite encephalopathic and confused at the time of my visit and the hx was solely based on my conversation with his . His last BM was yesterday . He was nauseated . Did not vomit . Today he was noted to be altered . noted that his speech is slurred and he is not making any sense. He pulled the IV in front of me and started walking around the unit pouring his blood all over the floor. I was able to direct him to his room and was able to convince him to lay on the bed . He needed frequent reorientation . ED work up : US abdomen showed thickened gallbladder wall . Hospital Course 78 years old male with history of HTN HLD, BPH s/p appendectomy who presented with one day of RUQ abdominal pain and right shoulder pain . He was quite encephalopathic and confused at the time of my visit noted that his speech is slurred and he is not making any sense. He pulled the IV in front of me and started walking around the unit pouring his blood all over the floor. # RUQ abdominal pain # Gallbladder wall thickening HIDA scan was negative. Seen by general surgery . S/p IV Zosyn . He tolerated advancement of diet. Follow up with general surgery as outpatient . Prescribed Augmentin for few days given gallbladder wall thickening # Encephalopathy , agitated delirium , most likley in the setting of vascular dementia given rapid progression over the course of past year explains hx of episodic paranoia while on a cruise CT/MRI with no acute abnormalities - Seroquel 25 HS - Outpatient neurocognitive test , DW #HTN - Losartan , Coreg added to his regimen #BPH - Terazosin Home Meds Active Scripts Carvedilol* (Coreg*) 6.25 Mg Tablet, 6.25 MG PO BID, #60 TAB Prov:SUDHIR REYES MD 02/28/19 Saccharomyces Boulardii (Probiotic) 250 Mg Capsule, 250 MG PO BID, #30 CAP Prov:SUDHIR REYES MD 02/28/19 Amoxicillin/Potassium Clav (Amox-Clav 875-125 mg Tablet) 875-125 mg Tab, 1 TAB PO BID, #14 TAB Prov:SUDHIR REYES MD 02/28/19 Quetiapine Fumarate* (Quetiapine Fumarate*) 25 Mg Tablet, 25 MG PO QHS, #14 TAB Prov:SUDHIR REYES MD 02/28/19 Ondansetron (Ondansetron Odt) 4 Mg Tab.rapdis, 4 MG PO Q6H PRN for NAUSEA AND/OR VOMITING, #10 TAB Prov:COREY BABCOCK MD 08/07/18 Reported Medications Losartan-Hydrochlorothiazide (Losartan-HCTZ) 100-12.5 Mg Tab, 1 TAB PO DAILY, TAB 08/07/18 Omeprazole* (Omeprazole*) 20 Mg Capsule.dr, 20 MG PO AC BREAKFAST, #30 CAP 08/07/18 Melatonin (Melatonin) 3 Mg Tablet.sa, 3 MG PO HS, TAB.SA 11/08/17 Terazosin Hcl* (Terazosin Hcl*) 1 Mg Capsule, 1 MG PO HS, CAP 11/08/17 Simvastatin* (Zocor*) 20 Mg Tablet, 20 MG PO QHS, #30 TAB 11/08/17 Follow-up Plan PCP in 7 days Neurology in 7 days for neurocognitive test General surgery Dr Stoddard in 2 weeks for gallstones Primary Care Provider Not On Staff Doctor Pending Labs Laboratory Tests Test 02/27/19 19:55 02/28/19 04:38 Urine Color STRAW (YELLOW) Urine Clarity CLEAR (CLEAR) Urine pH 5.0 (5.0-9.0) Urine Specific Sterling 1.003 (1.003-1.030) Urine Ketones NEGATIVE mg/dL (NEGATIVE) Urine Nitrite NEGATIVE mg/dL (NEGATIVE) Urine Bilirubin NEGATIVE mg/dL (NEGATIVE) Urine Urobilinogen NEGATIVE mg/dL (NEGATIVE) Urine Leukocyte Esterase NEGATIVE Jona/ul Urine Hemoglobin NEGATIVE mg/dL (NEGATIVE) Urine Glucose NEGATIVE mg/dL (NEGATIVE) Urine Total Protein NEGATIVE mg/dl (NEGATIVE) White Blood Count 4.3 10^3/ul (4.8-10.8) Red Blood Count 4.46 10^6/ul (4.70-6.10) Hemoglobin 13.3 g/dl (14.0-18.0) Hematocrit 41.5 % (42.0-52.0) Mean Corpuscular Volume 93.0 fl (82.0-101.0) Mean Corpuscular 29.8 pg (29.0-33.0) Hemoglobin Mean Corpuscular 32.0 g/dl (32.0-37.0) Hemoglobin Concent Red Cell Distribution 13.4 % (11.5-14.5) Width Platelet Count 153 10^3/UL (140-415) Mean Platelet Volume 11.4 fl (7.4-10.4) Immature Granulocytes % 0.200 % (0.001-0.429) Neutrophils % 59.8 % (39.0-77.0) Lymphocytes % 21.8 % (15.0-51.0) Monocytes % 15.1 % (0.0-11.0) Eosinophils % 1.9 % (0.0-7.0) Basophils % 1.2 % (0.0-2.0) Nucleated Red Blood Cells 0.0 /100WBC (0.0-0.0) % Immature Granulocytes # 0.010 10^3/ul (0.0-0.031) Neutrophils # 2.6 10^3/ul (1.6-7.5) Lymphocytes # 0.9 10^3/ul (0.8-2.9) Monocytes # 0.7 10^3/ul (0.3-0.9) Eosinophils # 0.1 10^3/ul (0.0-0.5) Basophils # 0.1 10^3/ul (0.0-0.1) Nucleated Red Blood Cells 0.0 10^3/ul (0.0-0.0) # Sodium Level 141 mmol/L (135-144) Potassium Level 3.9 mmol/L (3.5-5.1) Chloride Level 109 mmol/L (97-110) Carbon Dioxide Level 26 mmol/L (21-31) Anion Gap 6 (5-13) Blood Urea Nitrogen 11 mg/dl (7-20) Creatinine 1.30 mg/dl (0.61-1.24) Est Glomerular Filtrat mL/min (>60) Rate mL/min Glucose Level 108 mg/dl (70-220) Calcium Level 8.8 mg/dl (8.4-10.2) Phosphorus Level 3.4 mg/dl (2.5-4.9) Magnesium Level 2.1 mg/dl (1.7-2.5) Total Bilirubin 1.5 mg/dl (0.2-1.3) Direct Bilirubin 0.00 mg/dl (0.00-0.20) Indirect Bilirubin 1.5 mg/dl (0-1.1) Aspartate Amino 25 IU/L (15-46) Transf (AST/SGOT) Alanine 23 IU/L (13-69) Aminotransferase (ALT/SGPT ) Alkaline Phosphatase 34 IU/L (42-121) Total Protein 6.3 g/dl (6.1-8.1) Albumin 3.4 g/dl (3.3-4.9) Globulin 2.90 g/dl (1.3-3.2) Albumin/Globulin Ratio 1.17 SUDHIR REYES MD Feb 28, 2019 17:29
[2019-02-28] MEDS ORDERED: HALOPERIDOL 5 MG INJ IM ONE (20:00)
[2019-02-28] MEDS ORDERED: HALOPERIDOL 5 MG INJ IV ONE (20:00)
[2019-02-28] MEDS ORDERED: HALOPERIDOL 5 MG INJ ONE (20:00)
[2019-02-28] MEDS: TERAZOSIN 1 MG CAP PO SCH (20:25)
[2019-02-28] MEDS: MELATONIN 3 MG TABLET PO SCH (20:26)
[2019-02-28] MEDS: FAMOTIDINE 20 MG INJ IV SCH (22:30)
[2019-03-01] MEDS: PIPER-TAZO 3.375 GM IV (PMX) 100 ML IVPB SCH ×3 (00:21→11:38)
[2019-03-01 01:00] VITALS: BP 186/89; PULSE 69; RESP 20
[2019-03-01] MEDS: hydrALAzine 20 MG INJ IV PRN (01:37)
[2019-03-01] MEDS ORDERED: HALOPERIDOL 5 MG INJ IM PRN (03:30)
[2019-03-01 04:00] VITALS: BP 155/74; PULSE 81; RESP 20
[2019-03-01] MEDS: morphine 2 MG INJ IV PRN (05:24)
[2019-03-01 06:01] VITALS: BP 155/71; PULSE 88
[2019-03-01 07:23] VITALS: BP 167/80; PULSE 87; RESP 18
[2019-03-01] MEDS: FLUTICASONE 0.05% 16 GM NAS SPRAY NASAL SCH (08:43)
[2019-03-01] MEDS: QUETIAPINE 25 MG TAB NGT SCH (08:43)
[2019-03-01] MEDS: AMLODIPINE 2.5 MG TAB PO SCH (08:44)
[2019-03-01] MEDS: LOSARTAN 50 MG TAB PO SCH (08:44)
[2019-03-01] MEDS: ENOXAPARIN 30 MG/0.3 ML SYG SC SCH (08:47)
[2019-03-01 09:29] VITALS: BP 131/65
[2019-03-01] MEDS ORDERED: SOD CHLORIDE 0.9% 500 ML IV ONE (10:00)
--- NOTE | 2019-03-01 11:32 | PN ---
Date/Time of Note Date/Time of Note DATE: 03/01/19 TIME: 11:31 Assessment/Plan VTE Prophylaxis Risk score (from Nsg)>0 risk: 3 SCD applied (from [facility]): Yes Pharmacological prophylaxis: LMWH Lines/Catheters IV Catheter Type (from [facility]rs[facility]): Saline Lock Assessment/Plan Hospital Course 78 years old male with history of HTN HLD, BPH s/p appendectomy who presented with one day of RUQ abdominal pain and right shoulder pain . He was quite encephalopathic and confused at the time of my visit noted that his speech is slurred and he is not making any sense. He pulled the IV in front of me and started walking around the unit pouring his blood all over the floor. MRI of the brain showed no abnormalities. According to the he is at his baseline mental status and she is comfortable to take him home # RUQ abdominal pain # Gallbladder wall thickening HIDA scan was negative - IV Zosyn , Augmentin of DC - Outpatient follow up with gen surgery # Encephalopathy , agitated delirium , most likely in the setting of declining cognitive state due to vascular dementia given small vessel ischemic changes noted on CT/MRI explains hx of episodic paranoia while on a cruise . CT and MRI with no acute abnormalities . No fever and neck is supple on exam. TSH and Ft4 NL - Seroquel 25 hs when going home - One to one sitter - Outpatient neurocognitive test as well as psychiatry - #HTN - Losartan added Coreg #KEVIN on CKD due to dehydration - NS 500 cc as bolus #BPH - Terazosin #PPI for GI PPX , SCD for DVT PPX Dipso : Home after receiving bolus with close outpatient follow up Result Diagram: 03/01/19 0414 03/01/19 0414 Results 24hrs Laboratory Tests Test 03/01/19 04:14 White Blood Count 4.9 Red Blood Count 4.85 Hemoglobin 14.4 Hematocrit 45.1 Mean Corpuscular Volume 93.0 Mean Corpuscular Hemoglobin 29.7 Mean Corpuscular Hemoglobin Concent 31.9 L Red Cell Distribution Width 13.6 Platelet Count 165 Mean Platelet Volume 11.3 H Immature Granulocytes % 0.200 Neutrophils % 59.6 Lymphocytes % 25.6 Monocytes % 10.9 Eosinophils % 2.3 Basophils % 1.4 Nucleated Red Blood Cells % 0.0 Immature Granulocytes # 0.010 Neutrophils # 2.9 Lymphocytes # 1.3 Monocytes # 0.5 Eosinophils # 0.1 Basophils # 0.1 Nucleated Red Blood Cells # 0.0 Sodium Level 141 Potassium Level 3.8 Chloride Level 107 Carbon Dioxide Level 24 Anion Gap 10 Blood Urea Nitrogen 8 Creatinine 1.32 H Est Glomerular Filtrat Rate mL/min Glucose Level 109 Calcium Level 9.2 Phosphorus Level 3.8 Magnesium Level 2.1 Total Bilirubin 1.2 Direct Bilirubin 0.00 Indirect Bilirubin 1.2 H Aspartate Amino Transf (AST/SGOT) 29 Alanine Aminotransferase (ALT/SGPT) 20 Alkaline Phosphatase 42 Total Protein 6.9 Albumin 3.9 Globulin 3.00 Albumin/Globulin Ratio 1.30 Subjective 24 Hr Interval Summary Free Text/Dictation Patient remains disoriented and confused . states that this is his baseline mental status . He was very agitated last PM after MRI and required Haldol Exam/Review of Systems Exam Vitals Vital Signs Date Temp Pulse Resp B/P (MAP) Pulse Ox O2 O2 Flow FiO2 Time Delivery Rate 03/01/19 131/65 09:29 (87) 03/01/19 98.0 87 18 98 07:23 03/01/19 Room Air 04:00 Intake and Output 02/28/19 02/28/19 03/01/19 1515:00 23:00 07:00 IntakeIntake Total 1885 ml 820 ml 690 ml BalanceBalance 1885 ml 820 ml 690 ml Exam Constitutional: alert, well developed, distress; oriented x2 Psych: confusion Head: normocephalic, atraumatic Eyes: nl conjunctiva, EOMI, nl lids, nl sclera, PERRL ENMT: nl external ears & nose, nl lips & teeth, nl nasal mucosa & septum Neck: supple, non-tender Respiratory: clear to auscultation, normal air movement Cardiovascular: regular rate and rhythm, nl pulses Gastrointestinal: soft, non-tender Musculoskeletal: nl extremities to inspection Extremities: normal pulses Neurological: SHOE CLEANER II-XII intact, nl mental status, nl speech, nl strength Results Results 24hrs Laboratory Tests Test 03/01/19 04:14 White Blood Count 4.9 Red Blood Count 4.85 Hemoglobin 14.4 Hematocrit 45.1 Mean Corpuscular Volume 93.0 Mean Corpuscular Hemoglobin 29.7 Mean Corpuscular Hemoglobin Concent 31.9 L Red Cell Distribution Width 13.6 Platelet Count 165 Mean Platelet Volume 11.3 H Immature Granulocytes % 0.200 Neutrophils % 59.6 Lymphocytes % 25.6 Monocytes % 10.9 Eosinophils % 2.3 Basophils % 1.4 Nucleated Red Blood Cells % 0.0 Immature Granulocytes # 0.010 Neutrophils # 2.9 Lymphocytes # 1.3 Monocytes # 0.5 Eosinophils # 0.1 Basophils # 0.1 Nucleated Red Blood Cells # 0.0 Sodium Level 141 Potassium Level 3.8 Chloride Level 107 Carbon Dioxide Level 24 Anion Gap 10 Blood Urea Nitrogen 8 Creatinine 1.32 H Est Glomerular Filtrat Rate mL/min Glucose Level 109 Calcium Level 9.2 Phosphorus Level 3.8 Magnesium Level 2.1 Total Bilirubin 1.2 Direct Bilirubin 0.00 Indirect Bilirubin 1.2 H Aspartate Amino Transf (AST/SGOT) 29 Alanine Aminotransferase (ALT/SGPT) 20 Alkaline Phosphatase 42 Total Protein 6.9 Albumin 3.9 Globulin 3.00 Albumin/Globulin Ratio 1.30 Medications Medication Current Medications Ondansetron HCl (Zofran Odt) 4 mg Q6H PRN ODT NAUSEA AND/OR VOMITING Last administered on 02/28/19at 09:17; Admin Dose 4 MG; Start 02/26/19 at 22:30 Terazosin HCl (Hytrin) 1 mg HS PO Last administered on 02/28/19at 20:25; Admin Dose 1 MG; Start 02/27/19 at 21:00 IV Flush (NS 3 ml) 3 ml PER PROTOCOL IV ; Start 02/26/19 at 22:30 Acetaminophen (Tylenol Tab) 650 mg Q6H PRN PO .PAIN 1-3 OR TEMP; Start 02/26/19 at 22:30 Morphine Sulfate (morphine) 2 mg Q4H PRN IV .SEVERE PAIN 7-10 Last administered on 03/01/19at 05:24; Admin Dose 2 MG; Start 02/26/19 at 22:30 Docusate Sodium (Colace) 100 mg Q12H PRN PO .CONSTIPATION; Start 02/26/19 at 22:30 Famotidine (Pepcid Iv) 20 mg Q24H IV Last administered on 02/27/19at 22:50; Admin Dose 20 MG; Start 02/26/19 at 22:30 Enoxaparin Sodium (Lovenox) 30 mg DAILY SC Last administered on 03/01/19at 08:47; Admin Dose 30 MG; Start 02/27/19 at 09:00 Melatonin (Melatonin) 3 mg HS PO Last administered on 02/28/19 20:26; Admin Dose 3 MG; Start 02/27/19 at 21:00 Hydralazine HCl (Apresoline) 10 mg Q4H PRN IV ELEVATED SYSTOLIC BP Last administered on 03/01/19 01:37; Admin Dose 10 MG; Start 02/27/19 at 00:30 Piperacillin Sod/ Tazobactam Sod 100 ml @ 200 mls/hr Q6 IVPB Last administered on 03/01/19 05:58; Admin Dose 200 MLS/HR; Start 02/27/19 at 12:00 Hydralazine HCl (Apresoline) 10 mg Q4H PRN PO SBP> 150 or DBP > 95 Last administered on 02/27/19 18:21; Admin Dose 10 MG; Start 02/27/19 at 13:30 Quetiapine Fumarate (Seroquel) 25 mg BID NGT Last administered on 03/01/19 08:43; Admin Dose 25 MG; Start 02/27/19 at 13:30 Amlodipine Besylate (Norvasc) 2.5 mg DAILY PO Last administered on 03/01/19 08:44; Admin Dose 2.5 MG; Start 02/28/19 at 09:00 Losartan Potassium (Cozaar) 100 mg DAILY PO Last administered on 03/01/19 08:44; Admin Dose 100 MG; Start 02/28/19 at 09:00 Fluticasone Propionate (Flonase 0.05% Nasal) 1 spray BID NASAL Last administered on 03/01/19 08:43; Admin Dose 1 SPRAY; Start 02/27/19 at 21:00 Carvedilol (Coreg) 3.125 mg BID PO Last administered on 03/01/19 08:45; Admin Dose 3.125 MG; Start 02/28/19 at 13:00 Haloperidol (Haldol) 5 mg Q8H PRN IM AGITATION; Start 03/01/19 at 03:30 SUDHIR REYES MD Mar 01, 2019 11:32
--- NOTE | 2019-03-01 16:53 | PN ---
Date/Time of Note Date/Time of Note DATE: 03/01/19 TIME: 16:51 Assessment/Plan Lines/Catheters IV Catheter Type (from [facility]): Saline Lock Assessment/Plan Chief Complaint/Hosp Course 1. Abdominal pain with ultrasound finding of cholelithiasis, concern for cholecystitis: HIDA unremarkable; abdominal pain resolved -have discussed surgical option with and patient multiple times and they are refusing surgery at this time -low fat low cholesterol diet 2. Mild hyperbilirubinemia: -trend 3. Hypertension & Hyperlipidemia: -Medical management -Highly encourage weight loss 4. Minimally elevated amylase lipase: -trend 5. BPH: Currently on terazosin: -Continue medical management 6. Gout -Lifestyle optimization Thank you Late entry Subjective 24 Hr Interval Summary No abdominal discomfort at this time. Confused. No fevers, chills, sob, conges go cough, cp, palpitations, monteiro, dizziness, n/v/d/dysuria. Labs noted. Exam/Review of Systems Vital Signs Vitals Vital Signs Date Temp Pulse Resp B/P (MAP) Pulse Ox O2 O2 Flow FiO2 Time Delivery Rate 03/01/19 131/65 09:29 (87) 03/01/19 98.0 87 18 98 07:23 03/01/19 Room Air 04:00 Intake and Output 02/28/19 02/28/19 03/01/19 1515:00 23:00 07:00 IntakeIntake Total 1885 ml 820 ml 690 ml BalanceBalance 1885 ml 820 ml 690 ml Exam Free Text/Dictation Constitutional: alert, oriented (x1) Psych: nl mood/affect; No anxiety Head: normocephalic, atraumatic Eyes: nl conjunctiva, EOMI, nl lids, nl sclera ENMT: nl external ears & nose, nl lips & teeth Neck: supple, non-tender Respiratory: normal air movement; No congested cough Cardiovascular: regular rate and rhythm, nl pulses; No edema Gastrointestinal: soft, non-tender (Negative Hoffman's by palpation) Genitourinary - Male: nl penis, nl scrotum Musculoskeletal: nl extremities to inspection, nl gait and stance Extremities: normal pulses Neurological: nl mental status, nl speech, nl strength Skin: nl turgor; No rash or lesions Lymph: nl lymph nodes Results Result Diagram: 03/01/19 0414 03/01/19413 CARMENCITA CRAMER MD Mar 01, 2019 16:53
== END 2019-03-01 13:00 | disposition home or self-care (01) | DRG 392 ==
LOC: E/R 19:25 → PP2 21:43
PROVIDERS: ADMIT Internal Medicine; ATTEND Internal Medicine
DX: R10.11 Right upper quadrant pain (principal); G93.40 Encephalopathy, unspecified; F01.50 Vascular dementia, unspecified severity, without behavioral disturbance, psychotic disturbance, mood disturbance, and anxiety; E78.5 Hyperlipidemia, unspecified; I10 Essential (primary) hypertension; N40.0 Benign prostatic hyperplasia without lower urinary tract symptoms; M10.9 Gout, unspecified; R41.0 Disorientation, unspecified; Z87.891 Personal history of nicotine dependence
CPT/HCPCS: 36415; 70450; 70551; 76705; 78226; 80053; 81003; 82150; 82607; 83036; 83690; 83735; 84100; 84436; 84479; 84484; 85025; 85610; 85730; 93005; 96361; 96365; 96375; A9537; J0360; J1170; J1630; J1650; J1885; J2270; J2405; J2543; J3480; J7030; J7040